=== PATIENT | male | born 1950 | race Caucasian/White ===

== ENCOUNTER → 2018-12-08 | Outpatient (CLI) | payer BC ==
--- NOTE | 2018-12-08 12:54 | PCVCIMAG ---
APPROVED REPORT Study performed: 12/08/2018 10:14:30 Exam: Stress Echocardiogram Indication: CAD s/p MT, Dyspnea Patient Location: Echo lab Stress Nurse: Verena Aranda RN Room #: 2 Status: routine Ht: 6 ft 1 in HR: 62 bpm BP: 118/76 mmHg Rhythm: NSR Medical History Medical History: CAD s/p MT Cardiac Risk Factors: HTN, DM Previous Cardiac Procedures: PCI,MT Pretest Chest Pain Characteristics: No chest pain Exercise History: Physically active Procedure The patient underwent an Exercise Stress Test using the [employer] Protocol. Blood pressure, heart rate, and EKG were monitored. An Echocardiogram was performed by hvac engineering technician in four stages in quad fashion. At peak stress, four selected images were obtained and placed side by side with resting images for comparison. Stress Test Details Stress Test: Exercise stress testing was performed using a [employer] protocol. HR Resting HR: 62 bpmMax Heart Rate (APMHR): 154 bpm Max HR Achieved: 141 bpmTarget HR (85% APMHR): 130 bpm % of APMHR: 91 Recovery HR: 82 bpm HR response to stress: Normal HR response to stress BP Resting BP: 118/76 mmHg Max BP: 164/80 mmHg Recovery BP: 134/68 mmHg BP response to stress: Normal blood pressure response to stress. ECG Resting ECG: Sinus Rhythm Stress ECG: Sinus Rhythm ST Change: Non-ischemic Arrhythmia: Three short runs VT,occasional PVCs Recovery ECG: Sinus Rhythm Recovery ST Change: Non-ischemic Recovery Arrhythmia: Rare PVC,PAC Clinical Reason for Termination: Maximal effort Stress Symptoms: Fatigue Exercise duration: 10 min 30 sec Highest Stage Achieved: Stage 4: 4.2 mph at 16% grade. Exercise capacity: 13.7 METs Overall Exercise Capacity for Age: Good Scale: Active Angina Score: None No complications. Stress ECG Conclusion The patient exercised according to the [employer] protocol for 10:30 mins; achieving a work level of 13.7 METS. The resting heart rate of 62 bpm demond to a maximum heart rate of 141 bpm. This value represent 91% of the maximal, age-predicted heart rate. The resting blood pressure of 118/76 mmHg, demond to a maximum blood pressure of 164/80 mmHg. The exercise test was stopped due to fatigue. Pre-Stress Echo The resting Echocardiogram showed normal left ventricular contractility with an estimated Ejection Fraction of about 55-60%. Normal wall motion in all segments on baseline images except for a small portion of the apical inferior wall which is mildly hypokinetic . This is consistent with known anatomyof an occluded distal PDA. Post-Stress Echo The stress Echocardiogram showed normal left ventricular contractility with an estimated Ejection Fraction of about 65-70%. There is a small region of mild hypokinesis seen in the apical inferior wall consistent with known anatomy. Normal augmentation of wall motion in all segments on post stress images. Clinical No clinical or ECG evidence for ischemia. Conclusion Clinical Response: Non-ischemic Exercise Capacity: Superior Stress ECG Response: Non-ischemic Stress Echo Images: Non-ischemic No clinical, EKG or echocardiographic evidence for ischemia. No echocardiographic evidence for exercise induced ischemia. Normal stress echocardiogram with maximal exercise stress. <Conclusion> No clinical, EKG or echocardiographic evidence for ischemia. No echocardiographic evidence for exercise induced ischemia. Normal stress echocardiogram with maximal exercise stress.
== END | disposition home or self-care (01) ==
LOC: PCVCIMAG 10:00
PROVIDERS: ATTEND Internal Medicine Cardiovascular Disease
DX: I25.10 Atherosclerotic heart disease of native coronary artery without angina pectoris (principal); E78.00 Pure hypercholesterolemia, unspecified; I10 Essential (primary) hypertension; E11.9 Type 2 diabetes mellitus without complications
CPT/HCPCS: 93325; 93351